=== PATIENT | female | born 1975 | race Caucasian/White ===

== ENCOUNTER 2022-01-20 00:07 | Day surgery (SDC) | payer OTHER, SELFPAY ==
[2022-01-12 15:11] VITALS: BMI 20.7
--- NOTE | 2022-01-12 15:30 | PC.NURSE ---
Report to the Outpatient Waiting Room, entrance under the green pavilion located off [facility], at time 1130 on date 01/20/22. OR Time: 1330. Time changes happen often and if your time is changed the preop area will call you the afternoon before. - You and your visitor will be asked to self-screen and do not enter if you have any COVID symptoms. - Only one visitor and NO children visitors are allowed at this time. - The patient visitor is requested to leave or wait in car when not with patient due to restrictions. - A mask is required within the hospital. Patients may have clear liquids (water, carbonated beverages, clear teas, apple juice) until 3 hours prior to surgery with a maximum of 20 ounces. - No food from midnight until time of surgery Take the following medications with a SIP of water the morning of surgery: NONE Medications to discontinue per physician: N/A Date to take last dose: N/A Please no make-up, nail kyrgyz, hairspray, perfume, deodorant, or body powder the day of surgery. No jewelry (including any body piercings) or valuables the day of surgery, leave them at home. Please take a shower or bath the night before, or the morning of, surgery with an antibacterial soap. Wear comfortable, loose fitting clothing. - Jewelry must be removed prior to entering the operating room. Rings and piercings that are not removed may be cut off. - The hospital will not accept responsibility for valuables. - Please leave all valuables, including medications, at home the day of surgery. If you are going home after surgery, a licensed flatbed driver must drive you home. - NO public transportation without another adult. - We recommend that an adult stay with you for 24 hours following discharge. - We also recommend that you do not drive, make important decision, drink alcoholic beverages, or take any drugs that were not prescribed by your health care provider for at least 24 hours after your discharge time. Follow any additional instructions given to you from your surgeon. If you or anyone in your household have experienced Covid symptoms in the past week, please notify your surgeon or the nurse liaison at the phone number below for possible testing. Telephone instructions given to PT Carol CISNEROS and asked if any additional questions and then verbalized understanding. Patient advised to call surgeon office or pre surgery nurse liaison [phone] if any additional questions.
[2022-01-20] VITALS (9 sets, daily range): BP systolic 112–148; BP diastolic 71–92; PULSE 63–101; RESP 12–18; TEMP 37.2; O2SAT 100
[2022-01-20] MEDS: LACTATED RINGERS 1,000 ML 30 ML IV CONT ×2 (11:40→16:58)
[2022-01-20 11:59] LABS: Urine Cotinine NEGATIVE
--- NOTE | 2022-01-20 13:51 | P.PNAN_ITS ---
Anes - Initial Pre Proc Eval Procedure: Operation Date: 01/20/22 13:30 Proposed Procedures p Bilateral Breast Implant Exchange with Mastopexy - Luis Hopkins MD Date/Time: 01/20/22 13:51 Surgeon: Luis Hopkins MD Pre Op Diagnosis: Hx of Breast Aug, Skin Laxity Patient Data Age: 46 Gender: F Height: 1.65 m Weight: 58.3 kg Last Vital Signs Temp 37.2 C 01/20/22 11:37 Pulse 63 01/20/22 11:37 Resp 16 01/20/22 11:37 BP 144/80 H 01/20/22 11:37 Pulse Ox 100 01/20/22 11:37 O2 Del Method Room Air 01/20/22 11:37 Allergies Allergy/AdvReac Type Severity Reaction Status Date / Time erythromycin base Allergy Unknown unknown Verified 01/20/22 11:22 ketorolac [From Toradol] AdvReac Other Verified 01/20/22 11:22 Home Medications Medication Instructions Recorded Confirmed Type clonazepam 0.5 mg tablet 0.25 mg PO QHS 11/18/21 01/20/22 History cetirizine 10 mg tablet 10 mg PO DAILY PRN Allergy Symptoms 01/12/22 01/20/22 History Laboratory Tests 01/20/22 11:33 Cotinine Negative Patient hx anesthesia problems: none Family hx anesthesia problems: none Results Review: All pre-operative results and documents have been reviewed as part of the pre- operative evaluation. [facility] Past Medical History Medical History Anxiety Asthma Surgical History Surgical History History of tubal ligation Family History Family History Father Diabetes mellitus Hypertension Mother Diabetes mellitus Hypertension Social History Social History Smoking status: Never smoker Alcohol intake: current Alcohol use details: 3/MONTH Substance use: never Substance use type: does not use Living arrangements: alone Spiritual care concerns: No Anes - Eval Final PreProcedure Day of Procedure 01/20/22 13:51 Patient weight: normal Heart: regular rate and rhythm Lungs: clear to auscultation Airway: Mallampati scale class 1 Neurological: alert and oriented Last oral intake: >/= 8 hours ASA classification: II Emergent: no Anesthetic plan: proceed Anesthesia type and monitoring: general LMA and standard monitoring Results Review: All pre-operative results and documents have been reviewed as part of the pre- operative evaluation. Informed Consent: The patient's anesthetic plan and its attendant risks and benefits were discussed with the patient/family/POA. Questions were solicited and answers provided to the satisfaction of the patient/family/POA.
--- NOTE | 2022-01-20 13:53 | WPDHPUPDATE1 ---
History and Physical Update Update Date/Time: 01/20/22 13:53 History and Physical has been reviewed, including an updated exam of the patient. There are NO changes in the patient's condition. Risks, benefits, and alternatives have been discussed and questions answered. Patient agrees to proceed with procedure.
[2022-01-20] MEDS: SCOPOLAMINE 1.5 MG PATCH TRANSDERM (14:15)
--- NOTE | 2022-01-20 14:15 | W.PM.PROC2 ---
Procedure Note - Detailed Date of Procedure 01/20/22 Pre-op Diagnosis Hx of Breast Aug, Skin Laxity Post-op Diagnosis Same Procedure Performed 1. Bilateral breast implant exchange. 2. Bilateral mastopexy Surgeon Luis Hpokins MD Anesthesia General Findings Inverted T Superior Pedicle mastopexy Bilateral lateral popcorn capsulorraphy with medial capsulotomy Bilateral implants with no worrisome features, no leak noted; however, the left implant appear partially filled. New implants: Right REF# [id number] filled to 430cc SN [id number] Left REF# [id number] filled to 430cc SN [id number] Description of Procedure She is here today for bilateral breast augmentation mastopexy. Previously and again today the risks, benefits, alternatives were discussed in extensive detail. I wanted her to be very realistic about the risks involved as well as expectations. She understands any pathology sent would be at her expense in addition to what she paid. We discussed aftercare and what to monitor for. Made sure answered all of her questions to her satisfaction today and consent was obtained. Marked in the preoperative holding area with their verification. The patient was taken to the operating room placed supine on the operating table. Anesthesia was provided by anesthesiology. A surgical time-out was taken. We cleansed the skin and 1% lidocaine and 0.25% Marcaine with epinephrine was used anesthetize as a field block. She was prepped and draped in a standard sterile fashion. Tegaderm nipple Gunter were placed. A 15 blade used to make an incision just superior to the inframammary fold leaving a cusp of de-epithelized tissue at the t junction. Dissection was continued until the chest wall as identified. The implant and capsule were identified and elevated just superficial to capsule. Much of the capsule (especially under areola) were left in place. I irrigated with 3 liters of saline on TUR tumbing. Lateral popcorn capsulorraphy and medial capsulotomy completed bilateral. I used a triple antibiotic and Betadine containing solution to irrigate the pocket. I washed my gloves with the triple antibiotic and Betadine solution. We washed the implant immediately upon opening it with this solution and only opened it when we needed it. I used implant funnel and no-touch technique. The implant was introduced into the pocket using the funnel. Having verified positioning of the implant this was closed using 2-0 Vicryl. I tailor tacked the breast into position. Placed her in a sitting position. Verified the nipple-areolar location based on preoperative planning as well as intraoperative observations and measurements in full agreement. She was placed supine. I de-epithelialized the pedicle. I then removed the inferior central portion of the breast need making sure the implant was well protected. I elevated medial and lateral tissue flaps as well for planned closure. I closed along the IMF with 2-0 Stratafix. Along the vertical with 2-0 PDS. I closed around the Bright with 3-0 strata fix. 3-0 Monocryl along the vertical. 3-0 Stratafix along the IMF. I finally closed everything with running subcuticular 4-0 Monocryl and tissue glue. Fluffs and surgical bra were placed. Estimated Blood Loss 30 Drains No Packing No Pathology Yes (Bilateral breast tissue with capsule) Complications No immediate complications Condition Stable Disposition PACU
[2022-01-20] MEDS: ceFAZolin 2 GM/D5W 50 ML 2 GM/50 ML BAG IVPB (14:34)
[2022-01-20] MEDS: TRANEXAMIC ACID 1,000MG/ISO100 1,000 MG/100 ML BAG 200 MG IVPB (14:36)
[2022-01-20] MEDS: BUPIVACAINE HCL 0.25% PF 30 ML VIAL INFILTRATE (14:44)
[2022-01-20] MEDS: LIDO 2%/EPINEPHRINE 1:100,000 20 ML VIAL 40 ML INFILTRATE (14:44)
[2022-01-20] MEDS: NACL 0.9% IRRIG POUR BOTTLE 900 ML, GENTAMICIN SULFATE INJ 160 MG, ceFAZolin 2 GM, POVI... IRRIGATION (14:50)
[2022-01-20] MEDS: HYDROmorphone HCL INJ (*CRX) 1 MG/ML SYR 0.5 MG IV PUSH ×2 (17:42→17:49)
[2022-01-20] MEDS: ONDANSETRON INJ 4 MG/2 ML VIAL IV PUSH (18:27)
== END 2022-01-20 18:55 | disposition home or self-care (01) ==
PROVIDERS: PCP Internal Medicine; Visit Provider Surgery Plastic and Reconstructive Surgery
PROC: (CPT 19370; principal; 2022-01-20 13:30)
DX: Z41.1 Encounter for cosmetic surgery (principal); L57.4 Cutis laxa senilis; F41.9 Anxiety disorder, unspecified; Z79.899 Other long term (current) drug therapy
CPT/HCPCS: 19370; 19316; 19325; 80307; 88304; A9270; J0171; J0690; J1100; J1170; J1580; J2250; J2405; J2704; J3010; J7120

== ENCOUNTER 2023-05-01 12:12 | Inpatient (IN) | payer OTHER, SELFPAY ==
--- NOTE | ~2023-05-01 | CT_ITS ---
EXAMINATION: CT abdomen pelvis w con DATE: 05/01/2023 13:57 INDICATION: periumbilical tenderness TECHNIQUE: Computed tomography (CT) of the abdomen and pelvis was performed with 100 mL Omnipaque-350 intravenous contrast. Automated exposure control and iterative reconstruction technique were employe d. The dose-length product was 265.42 mGy-cm. COMPARISON: None. FINDINGS: Lower thorax: Unremarkable Liver: Normal. Biliary/Gallbladder: Dilated gallbladder containing sludge/stones, with pericholecystic fluid. There is mild intrahepatic duct dilation. The common bile duct measures 11 mm at the jerrell hepatis. No obst ructing stone or mass detected. Pancreas: The pancreatic duct is dilated to 4 mm. No mass detected. Suggestion of edema within the pa ncreatic tail. Peripancreatic fluid surrounding the pancreatic body and tail. Spleen: Normal. Adrenals:No mass. Kidneys: No suspicious mass, obstructing stone, or hydronephrosis. Simple left midpole cyst. GI tract: No small or large bowel dilation. The appendix is not confidently visualized and may be soni gically absent or obscured by the relative paucity of abdominal fat. Mesentery/Peritoneum: No ascites, mass, or free air. Retroperitoneum: No mass. Pelvis: Pelvic organs are within normal limits. Bilateral tubal ligation. Soft Tissues: Soft tissues and body wall unremarkable. Bones: No acute osseous finding. IMPRESSION: Findings likely represent choledocholithiasis, although no obstructing stone or mass is detected. Con inspector and clipper MRCP. Secondary pancreatitis may be present, correlate with pancreatic labs. Reviewed, dictated and finalized at location K. OGY ADJUNCT INSTRUCTOR IMPRESSION: Findings likely represent choledocholithiasis, although no obstructing stone or mass is detected. Consider MRCP. Secondary pancreatitis may be present, correlate with pancreatic labs.
--- NOTE | ~2023-05-01 | US_ITS ---
EXAMINATION: US abdomen limited DATE: 05/01/2023 16:30 INDICATION: CHOLEDOCHOLITHIASIS TECHNIQUE: Multiple grayscale and Doppler ultrasound images of limited portions of the abdomen were o btained. COMPARISON: None available. FINDINGS: Mild dilation of the pancreatic duct. The liver is normal with normal echogenicity and echo texture. No surface nodularity. Normal hepatopetal flow in the main portal vein. Pericholecystic flui d. Borderline gallbladder wall thickening. Multiple gallstones. The common bile duct measures 5 mm. T here was no sonographic Chacon sign, but the patient is reportedly on pain medications. IMPRESSION: Cholelithiasis with borderline gallbladder wall thickening and small volume pericholecystic fluid. Th e sonographic Chacon sign was negative but this may be confounded by the concurrent use of pain medic ation. Pancreatic duct dilation. No obstructing biliary duct stone detected. Reviewed, dictated and finalized at location K. ICE DESK LEAD IMPRESSION: Cholelithiasis with borderline gallbladder wall thickening and small volume per icholecystic fluid. The sonographic Chacon sign was negative but this may be co nfounded by the concurrent use of pain medication. Pancreatic duct dilation. No obstructing biliary duct stone detected.
--- NOTE | ~2023-05-01 | MR_ITS ---
EXAMINATION: MR MRCP wo/w con/w 3D wo ind DATE: 05/02/2023 13:44 INDICATION: Gallstone pancreatitis with elevated liver enzymes TECHNIQUE: Magnetic resonance imaging (MRI) of the abdomen was performed without and with 12 mL Multi radha intravenous contrast. Sequences included coronal T2-weighted SS-FSE, coronal T2-weighted FS SS- FSE, coronal T2-weighted FS FIESTA, axial T2-weighted FS FIESTA, axial T2-weighted FIESTA, sagittal T 2-weighted SS-FSE, axial T1-weighted dual-echo FSPGR, axial T2-weighted SS-FSE, axial T1-weighted LAV A, axial T2-weighted STIR FSE. Thick-slab T2-weighted FRFSE-XL images were obtained for magnetic reso nance cholangiopancreatography (MRCP). Rotating maximum intensity projection 3-D reconstructions of t he volumetric data were created by the technologist. Postcontrast sequences included a time course of axial T1-weighted LAVA. COMPARISON: Ultrasound and CT dated 05/01/2023 FINDINGS: ABDOMEN MRI: Heart size is normal. No pericardial or pleural effusion. Bilateral breast implants. Liver, spleen, b ilateral adrenal glands and right kidney are normal. 6 mm T2 hyperintense nonenhancing left renal cys t. There are multiple gallstones within the gallbladder. There is trace amount of pericholecystic flu id and/or mild edematous gallbladder wall thickening suspicious for acute cholecystitis. There is str anding and likely acute peripancreatic fluid surrounding the tail of the pancreas consistent with pro vided history of acute interstitial pancreatitis. Pancreas otherwise normal with homogeneous parenchy mal enhancement with no evident necrosis. No loculated fluid collections to suggest abscess or pseudo cyst. No pathologically enlarged abdominal lymphadenopathy. Visualized portion of the bowels are unre markable with no obstruction. Normal bone marrow signal. ABDOMEN MRCP: Interval decrease in caliber of the common bile duct which at the time of prior CT measured approxima tely 11 mm in maximal diameter and currently measures 6 mm in maximal diameter. The common bile duct tapers distally with no evident obstructing stones or masses. There is no intrahepatic biliary ductal dilation. There is also been interval decrease in caliber of the main pancreatic duct which at the t raisa of the prior CT measured up to 4 mm in maximal diameter currently measuring up to 2.5 mm maximal diameter at the head and neck of the pancreas tapering to 1.5 mm at the tail. IMPRESSION: 1. Cholelithiasis with mild edematous gallbladder wall thickening and/or trace amount of pericholecys tic fluid consistent with acute cholecystitis. 2. Interval decrease in the biliary ductal dilation, previously 11 mm, currently 6 mm at the upper li mits of normal which suggests possibility of a since past obstructing stone with no evident current c holedocholithiasis. 3. Inflammatory changes at the tail of the pancreas suggestive of acute interstitial pancreatitis wit h resolution of prior dilation of the main pancreatic duct. Reviewed, dictated and finalized at location A. ANALYST IMPRESSION: 1. Cholelithiasis with mild edematous gallbladder wall thickening and/or trace amount of pericholecystic fluid consistent with acute cholecystitis. 2. Interval decrease in the biliary ductal dilation, previously 11 mm, currentl y 6 mm at the upper limits of normal which suggests possibility of a since past obstructing stone with no evident current choledocholithiasis. 3. Inflammatory changes at the tail of the pancreas suggestive of acute interst itial pancreatitis with resolution of prior dilation of the main pancreatic angela tMeghna
[2023-05-01 12:12] VITALS: BP 157/83; PULSE 80; RESP 22; TEMP 36.6; O2SAT 100
[2023-05-01 12:32] LABS: Basophils Absolute Auto 0.1 K/mm3 (0.0-0.1); Basophils Percent Auto 0.5 % (0.2-1.2); Eosinophils Absolute Auto 0.1 K/mm3 (0-0.3); Eosinophils Percent Auto 0.9 % (0-4.4); Hematocrit 43.5 % (37.0-47.0); Hemoglobin 14.4 g/dL (12.0-15.0); Immature Granulocyte Absolute 0.02 K/mm3 (0.00-0.031); Immature Granulocyte Percent A 0.2 % (0-0.5); Lymphocytes Absolute Auto 1.66 K/mm3 (0.9-3.2); Lymphocytes Percent Auto 17.5 % (18.3-44.2); Mean Corpuscular HGB Conc 33.1 g/dl (32-36); Mean Corpuscular Hemoglobin 29.5 pg (26-34); Mean Corpuscular Volume 89.1 fl (80-100); Mean Platelet Volume 9.2 fl (7.4-10.4); Monocytes Absolute Auto 0.6 K/mm3 (0.1-0.6); Monocytes Percent Auto 6.2 % (2.6-8.5); Neutrophils Absolute Auto 7.1 K/mm3 (1.3-6.7); Neutrophils Percent Auto 74.7 % (45.5-73.1); Platelet Count Result 297 k/mm3 (150-375); Red Blood Count 4.88 M/mm3 (4.2-5.4); Red Cell Distribution Width 12.3 % (11.5-14.5); White Blood Count 9.5 K/mm3 (4.5-10.0)
[2023-05-01 12:44] LABS: Alanine Aminotransferase 38 U/L (6-35); Albumin Level 4.8 g/dL (3.5-5.1); Alkaline Phosphatase 70 U/L (38-126); Anion Gap 8 mmol/L (8-16); Aspartate Amino Transferase 64 U/L (14-36); Bilirubin,Total 1.1 mg/dL (0.2-1.3); Blood Urea Nitrogen 10 mg/dL (7-17); Calcium 10.6 mg/dL (8.4-10.2); Carbon Dioxide 28 mmol/L (22-30); Chloride 105 mmol/L (98-107); Estimated CRCL calculation 72 ml/min; Estimated Glomerular Filt Rate > 60; Glucose 143 mg/dL (65-110); Potassium 3.5 mmol/L (3.4-5.0); Sodium 141 mmol/L (137-145)
[2023-05-01] MEDS: PANTOPRAZOLE SODIUM IV 40 MG VIAL IV PUSH (12:49)
[2023-05-01] MEDS: ONDANSETRON INJ 4 MG/2 ML VIAL IV PUSH (12:49)
[2023-05-01] MEDS: FAMOTIDINE 20 MG/2 ML VIAL IV PUSH (12:49)
[2023-05-01 12:55] LABS: Appearance Urine Clear (Clear); Bacteria Urine None Seen /hpf; Bilirubin Urine Negative (Negative); Blood Urine Negative (Negative); Color Urine Yellow (Yellow); Glucose Urine UA Negative (Negative); Ketones Urine Negative (Negative); Leukocyte Esterase Ur Trace LEU/UL (Negative); Nitrate Urine Negative (Negative); Non Pathogenic Casts 0-2; Protein Urine Negative (Negative); RBC Urine 0-2 /hpf (0-2); Specific Grav Ur 1.009 (1.001-1.035); Squamous Epithelial Cell Urine None seen /hpf (Few); Urobilinogen Urine 0.2 mg/dL (<2.0); WBC Urine 0-5 /hpf
[2023-05-01 12:59] LABS: Add Urine Microscopic? YES
[2023-05-01 13:49] LABS: Lipase > 40000 U/L (23-300)
[2023-05-01] MEDS: LACTATED RINGERS 1,000 ML 999 ML IV CONT (14:00)
--- NOTE | 2023-05-01 14:26 | ED.ABDPAIN ---
HPI - Abdominal Pain General Chief Complaint: Abdominal Pain Stated Complaint: abd pain Time Seen by Provider: 05/01/23 12:23 History of Present Illness HPI narrative: 47F p/w severe epigastric pain started today; has had similar episode months ago which resolved after 2 days and lots of antacids, which she tried today without improvement. Does drink lots of coffee, only drinks ETOH very occasionally, no history of gallstones. No f/c. Mild nausea. Normal BMs. Related Data Home Medications Medication Instructions Recorded Confirmed clonazepam 0.5 mg tablet 0.25 mg PO QHS 11/18/21 01/20/22 cetirizine 10 mg tablet 10 mg PO DAILY PRN Allergy Symptoms 01/12/22 01/20/22 Allergies Allergy/AdvReac Type Severity Reaction Status Date / Time erythromycin base Allergy Unknown unknown Verified 05/01/23 12:18 piperacillin [From Zosyn] Allergy Hives Verified 05/01/23 15:48 tazobactam [From Zosyn] Allergy Hives Verified 05/01/23 15:48 ketorolac [From Toradol] AdvReac Other Verified 05/01/23 12:18 Review of Systems Review of Systems: CONST: No fever. HEENT: No sore throat C/V: No chest pain RESP: No cough GI: Reports abdominal pain, nausea : No dysuria. M/S: No joint pain. SKIN: No rash. NEURO: [No headache or focal numbness or weakness] PSYCH: [No depression] [facility] Past Medical History Medical History Anxiety Asthma Surgical History Surgical History History of tubal ligation Family History Family History Father Diabetes mellitus Hypertension Mother Diabetes mellitus Hypertension Social History Social History Smoking status: Never smoker Alcohol intake: current Alcohol use details: 3/MONTH Substance use: never Substance use type: does not use Living arrangements: alone Spiritual care concerns: No Exam Narrative: EXAMINATION OF ORGAN SYSTEMS/BODY AREAS: Constitutional: Vital signs per nursing GENERAL: Appears to be in pain HEAD: Normal with no signs of head trauma. EYES: EOMI, conjunctiva normal ENT: Hearing grossly intact LUNGS: Nonlabored breathing. HEART: [Regular rate and rhythm] ABD: [Soft], [tender to palpation] epigastric, RUQ. EXT: Normal range of motion SKIN: [No rashes or lesions.] NEURO: [Alert and oriented x 3. No gross focal sensory or strength deficits.] PSYCH: Normal affect Course Vital Signs Vital signs: Vital Signs Temperature 97.9 F 05/01/23 12:12 Pulse Rate 80 05/01/23 12:12 Respiratory Rate 22 H 05/01/23 12:12 Blood Pressure 157/83 H 05/01/23 12:12 Pulse Oximetry 100 05/01/23 12:12 Oxygen Delivery Room Air 05/01/23 12:12 Temperature 98.3 F 05/01/23 15:58 Pulse Rate 76 05/01/23 15:58 Respiratory Rate 16 05/01/23 15:58 Blood Pressure 142/79 H 05/01/23 15:58 Pulse Oximetry 100 05/01/23 15:58 Oxygen Delivery Room Air 05/01/23 12:12 MDM - Abdominal Pain MDM Narrative Medical decision making narrative: Electronic medical record was reviewed. Patient presented to the ED with complaint of [abdominal pain and nausea]. Vitals [were within acceptable limits]. Physical exam revealed [tenderness to palpation in epigastric and right upper quadrant]. Based on the patient's history and physical exam, my differential includes but is not limited to [gastritis, gastroenteritis, cholecystitis, pancreatitis, appendicits.] [IV access was established by nursing staff. Patient was given zofran, Protonix]. she did decline morphine. CBC, BMP, lipase, LFTs, bilirubin and alk phos were obtained. Labs were pertinent for Extremely elevated lipase. [Decision was made to obtain a CT-abdomen to evaluate for acute abdominal process. this shows choledocholithiasis with pancreatitis.] discu
[2023-05-01] MEDS: PIPERACILLN/TAZ 3.375GM/NS50ML 3.375 GM/50 ML BAG IVPB (14:52)
[2023-05-01] MEDS: diphenhydrAMINE HCl INJ 50 MG/ML VIAL 25 MG IV PUSH (15:47)
--- NOTE | 2023-05-01 15:47 | PC.NURSE ---
pt called out, states she is itchy and notices hives. edp aware, ordered benadryl for allergic rxn
[2023-05-01 15:58] VITALS: BP 142/79; PULSE 76; RESP 16; TEMP 36.8; O2SAT 100
--- NOTE | 2023-05-01 17:20 | PM.IMHP ---
H&P: HPI History of Present Illness Date/Time: 05/01/23 17:20 Chief Complaint: Abdominal Pain Narrative: 47 y/o F presents here with left-sided abdominal pain and mild nausea with PMH of anxiety, asthma, and tubal ligation. Patient reports sudden onset of epigastric pain with radiation to her left upper quadrant that began today, 05/01, around 9:00 a.m. Describes the pain as constant and raw that was not relieved with movements/positions. It is radiated to her left rib cage. Associated nausea, mild and without vomiting and belching. Patient had coffee and a bagel this morning. Patient attempted to treat discomfort and nausea with Klonopin, Pepto-Bismol, Tums, Rolaids, and Pepcid without relief. Reports alcohol intake last night, 2 beverages - malibu and diet coke. States she drinks very infrequently, approximately 3 times per year. LBM this morning, normal color and consistency. No previous history of gallstones or DM. Had moderate dyslipidemia in her 20's but resolved with weight loss. No recent surgeries or illnesses. Has had a similar episode on 03/27. It is pain resolved with multiple doses of antacids and rest over 2 days. No history of abdominal bloating, food intolerance, increased gas, nausea or vomiting. No mid back or shoulder discomfort. Recently started a women's multivitamin once per day in the past week. ED workup revealed no leukocytosis, no anemia, glucose 143, calcium 10.6, AST 64, ALT 438, alk-phos 70, total bilirubin 1.1, and lipase >40,000. CT of abd/pelvis showed choledocholithiasis without obstructing stone and possible secondary pancreatitis. RUQ US showed cholelithiasis with borderline gallbladder wall thickening and small volume pericholecystic fluid, pancreatic duct dilation, no obstructing biliary duct stone detected. [facility] Past Medical History Medical History Anxiety Asthma Surgical History Surgical History History of tubal ligation Family History Family History Father Diabetes mellitus Hypertension Mother Diabetes mellitus Hypertension Social History Social History Smoking status: Never smoker Alcohol intake: current Drinks per week: 1 Alcohol use details: 3/MONTH Substance use: never Substance use type: does not use Do You Feel Safe in your Home?: Yes Lack of Transportation: No Lack of Food: Never True Current Housing: I Have Housing Concerned About Future Housing: No Difficulty Paying Gas/Electric Bills: No Difficulty Paying for Meds: No Currently Unemployed: No Education: Bachelor's Degree Difficulty w/ Childcare or Family Care: No Living arrangements: alone Spiritual care concerns: No Meds Home Medications and Allergies Home Medications Medication Instructions Recorded Confirmed Type clonazepam 0.5 mg tablet 0.25 mg PO QHS 11/18/21 01/20/22 History cetirizine 10 mg tablet 10 mg PO DAILY PRN Allergy Symptoms 01/12/22 01/20/22 History Allergies Allergy/AdvReac Type Severity Reaction Status Date / Time erythromycin base Allergy Unknown unknown Verified 05/01/23 12:18 piperacillin [From Zosyn] Allergy Hives Verified 05/01/23 15:48 tazobactam [From Zosyn] Allergy Hives Verified 05/01/23 15:48 ketorolac [From Toradol] AdvReac Other Verified 05/01/23 12:18 Vital Signs Vital Signs - 24 hr 05/01/23 12:12 05/01/23 15:58 Temperature 97.9 F 98.3 F Pulse Rate 80 76 Respiratory Rate 22 H 16 Blood Pressure 157/83 H 142/79 H Pulse Oximetry 100 100 Oxygen Delivery Room Air Exam Const: General: no acute distress and uncomfortable Other: female, , and non-toxic appearance. HENMT: Face/Nose/Sinus: Normal nares present Mouth: Yes moist mucous membranes Eyes: General: appearanc
[2023-05-01 17:59] VITALS: BMI 20.5
[2023-05-01] MEDS: LACTATED RINGERS 1,000 ML 100 ML IV CONT (18:13)
[2023-05-01] MEDS: levoFLOXacin 750 MG/D5W 150 ML 750 MG/150 ML BAG 100 MG IVPB (18:18)
[2023-05-01 18:22] LABS: Alanine Aminotransferase 40 U/L (6-35); Albumin Level 3.8 g/dL (3.5-5.1); Alkaline Phosphatase 62 U/L (38-126); Anion Gap 4 mmol/L (8-16); Aspartate Amino Transferase 50 U/L (14-36); Blood Urea Nitrogen 9 mg/dL (7-17); Calcium 9.5 mg/dL (8.4-10.2); Carbon Dioxide 29 mmol/L (22-30); Chloride 106 mmol/L (98-107); Estimated CRCL calculation 70 ml/min; Estimated Glomerular Filt Rate > 60; Glucose 93 mg/dL (65-110); Potassium 4.3 mmol/L (3.4-5.0); Sodium 139 mmol/L (137-145)
[2023-05-01] MEDS: metroNIDAZOLE 500 MG/ISO 100ML 500 MG/100 ML BAG 100 MG IVPB (20:37)
[2023-05-01 20:48] VITALS: BP 121/85; PULSE 63; RESP 18; TEMP 36.6; O2SAT 100
[2023-05-02 05:18] VITALS: BP 132/79; PULSE 66; RESP 16; TEMP 36.3; O2SAT 99
[2023-05-02] MEDS: ACETAMINOPHEN 325 MG TABLET 650 MG PO ×3 (05:19→17:20)
[2023-05-02] MEDS: metroNIDAZOLE 500 MG/ISO 100ML 500 MG/100 ML BAG 100 MG IVPB ×3 (05:19→20:06)
[2023-05-02 06:22] LABS: Basophils Absolute Auto 0.1 K/mm3 (0.0-0.1); Basophils Percent Auto 0.8 % (0.2-1.2); Eosinophils Absolute Auto 0.1 K/mm3 (0-0.3); Eosinophils Percent Auto 1.6 % (0-4.4); Hematocrit 40.7 % (37.0-47.0); Hemoglobin 13.3 g/dL (12.0-15.0); Immature Granulocyte Absolute 0.01 K/mm3 (0.00-0.031); Immature Granulocyte Percent A 0.2 % (0-0.5); Lymphocytes Absolute Auto 1.46 K/mm3 (0.9-3.2); Lymphocytes Percent Auto 23.5 % (18.3-44.2); Mean Corpuscular HGB Conc 32.7 g/dl (32-36); Mean Corpuscular Hemoglobin 29.9 pg (26-34); Mean Corpuscular Volume 91.5 fl (80-100); Mean Platelet Volume 9.5 fl (7.4-10.4); Monocytes Absolute Auto 0.4 K/mm3 (0.1-0.6); Monocytes Percent Auto 6.5 % (2.6-8.5); Neutrophils Absolute Auto 4.2 K/mm3 (1.3-6.7); Neutrophils Percent Auto 67.4 % (45.5-73.1); Platelet Count Result 244 k/mm3 (150-375); Red Blood Count 4.45 M/mm3 (4.2-5.4); Red Cell Distribution Width 12.4 % (11.5-14.5); White Blood Count 6.2 K/mm3 (4.5-10.0)
[2023-05-02 06:39] LABS: Alanine Aminotransferase 32 U/L (6-35); Alkaline Phosphatase 63 U/L (38-126); Anion Gap 5 mmol/L (8-16); Aspartate Amino Transferase 28 U/L (14-36); Bilirubin,Total 0.9 mg/dL (0.2-1.3); Blood Urea Nitrogen 10 mg/dL (7-17); Calcium 9.1 mg/dL (8.4-10.2); Carbon Dioxide 29 mmol/L (22-30); Chloride 105 mmol/L (98-107); Cholesterol 167 mg/dL (0-200); Estimated CRCL calculation 63 ml/min; Estimated Glomerular Filt Rate > 60; Glucose 97 mg/dL (65-110); HDL Direct 65 mg/dL; Potassium 3.7 mmol/L (3.4-5.0); Sodium 139 mmol/L (137-145); Triglycerides 67 mg/dL (<150)
[2023-05-02 06:40] LABS: Hemoglobin A1C 5.5 % (<5.7)
[2023-05-02 06:48] LABS: LDL Cholesterol Direct 79 mg/dL
[2023-05-02 07:19] LABS: Lipase 6368 U/L (23-300)
[2023-05-02] MEDS: PANTOPRAZOLE SODIUM IV 40 MG VIAL IV PUSH (08:34)
[2023-05-02] MEDS: ENOXAPARIN 40 MG/0.4 ML SYRINGE SUB-Q (08:35)
[2023-05-02 09:46] VITALS: O2SAT 97
--- NOTE | 2023-05-02 11:56 | PM.IMPN ---
Progress Note: A&P Assessment and Plan (1) Choledocholithiasis: Code(s): K80.50 - Calculus of bile duct without cholangitis or cholecystitis without obstruction Status: Acute Assessment and Plan: CT abd/pelvis: Findings likely represent choledocholithiasis, although no obstructing stone or mass is detected. Consider MRCP. Secondary pancreatitis may be present, correlate with pancreatic labs. RUQ US: Cholelithiasis with borderline gallbladder wall thickening and small volume pericholecystic fluid. Pancreatic duct dilation. No obstructing biliary duct stone detected. 05/01 AST 64, ALT 38, alk-phos 70, lipase >40,000. 05/02 AST 28, ALT 32, alk-phos 63, lipase 6368. Consult GI and General surgery General surgery recommended starting Zosyn but pt had reaction and this was changed to Levaquin Clear liquids. P.r.n. pain medication. Trend daily labs. (2) Acute pancreatitis: Qualifiers: Acute pancreatitis complication: unspecified Pancreatitis type: unspecified pancreatitis type Qualified Code(s): K85.90 - Acute pancreatitis without necrosis or infection, unspecified Code(s): K85.90 - Acute pancreatitis without necrosis or infection, unspecified Status: Acute Assessment and Plan: 05/01 AST 64, ALT 38, alk-phos 70, lipase >40,000. 05/02 AST 28, ALT 32, alk-phos 63, lipase 6368. Clear liquid diet. consulting modeling manager for dietary recommendations/education for pancreatitis and cholecystitis patients. P.r.n. pain medication. IV fluids. Subjective Date/time seen: 05/02/23 11:56 Interval history: Patient's pain is completely resolved. Waiting on GI and General surgery to see the patient And appreciate their recommendations. Her elevated LFTs have resolved. Lipase is improving. Continue clear liquid diet. She denies any nausea vomiting, body aches and chills. States that she has had abdominal pain like this in the past but this was by far the worst experience she had had Exam Narrative: GENERAL: Comfortable, no acute distress HENMT: moist mucous membranes EYES: EOM intact b/l NECK: no lymphadenopathy RESPIRATORY: clear to auscultation CARDIO: RRR GI: soft, nontender, bowel sounds present SKIN: no rashes EXTREMITIES: no edema, redness or tenderness Objective Data Vital Signs Vital Signs: Vital Signs - 24 hr 05/01/23 12:12 05/01/23 15:58 05/01/23 18:23 Temperature 97.9 F 98.3 F Pulse Rate 80 76 Respiratory Rate 22 H 16 Blood Pressure 157/83 H 142/79 H Pulse Oximetry 100 100 Oxygen Delivery Room Air Room Air 05/01/23 20:48 05/01/23 20:00 05/02/23 05:18 Temperature 97.8 F 97.4 F L Pulse Rate 63 66 Respiratory Rate 18 16 Blood Pressure 121/85 132/79 Pulse Oximetry 100 99 Oxygen Delivery Room Air 05/02/23 09:46 05/02/23 08:35 Temperature Pulse Rate Respiratory Rate Blood Pressure Pulse Oximetry 97 Oxygen Delivery Room Air Intake/Output Intake/Output: Intake & Output 04/29/23 04/30/23 05/01/23 05/02/23 23:59 23:59 23:59 23:59 Intake Total 1300 1580 Balance 1300 1580 Meds/Results Medications: Active Medications Generic Name Dose Route Start Last Admin Trade Name Freq PRN Reason Stop Dose Admin Acetaminophen 650 mg 05/01/23 17:11 05/02/23 11:27 Acetaminophen 325 Mg Tablet PO 650 mg Q4H PRN Administration Mild Pain (1-3) or Fever Hydrocodone Bitart/Acetaminophen 1 tab 05/01/23 17:11 Hydrocodone/Acetaminophen (*Crx) 5-325 Mg Tablet PO Q4H PRN Moderate Pain (4-6) Diphenhydramine HCl 25 mg 05/01/23 17:31 Diphenhydramine Hcl Inj 50 Mg/Ml Vial IV PUSH Q4H PRN Itching Levofloxacin/Dextrose 750 mg in 150 mls @ 100 mls/hr 05/01/23 18:00 05/01/23 19:48 Levaquin 750 Mg/D5w 150 Ml IVPB Infused Q24H LARA Infusion Metronidazole 500 mg in 100 mls @ 100 mls/hr 05/01/23 21:00 05/02/23 06:15 Flagyl 500 Mg/Iso Soln 100 Ml IVPB Infuse
[2023-05-02 14:00] VITALS: BP 119/78; PULSE 73; RESP 16; TEMP 36.8; O2SAT 99
--- NOTE | 2023-05-02 14:26 | WPDGICN ---
Assessment and Plan Assessment and plan (1) Gallstone pancreatitis: Code(s): K85.10 - Biliary acute pancreatitis without necrosis or infection Status: Acute Assessment and Plan: awaiting on MRCP, if stone in bile duct then will need ERCP surgery to evaluate patient because she has cholelithiasis doing better now (2) Elevated transaminase level: Code(s): R74.01 - Elevation of levels of liver transaminase levels Status: Acute Assessment and Plan: normal bili, transaminases improved this is from pancreatitis no alcohol use (3) Epigastric pain: Code(s): R10.13 - Epigastric pain Status: Acute Assessment and Plan: better GI Consult Note Consult date/time: 05/02/23 14:26 Reason for consult: GS pancreatitis HPI: Hayley Birmingham is a 47 year old female here with new onset of severe epigastric pain and nausea (she had similar episode Mar 27 but went away), she came to ER and diagnosed with GS pancreatitis- ultrasound showed Cholelithiasis with borderline gallbladder wall thickening and small volume pericholecystic fluid. Normal bili, elevated lipase and mild elevated transaminases. No alcohol abuse, no previous pancreatitis. Denies gastric surgeries. She has been getting colonoscopies every year at [facility] because family history. She is comfortable now, pain is better. Just completed MRCP. Review of Systems Constitutional: Constitutional: Denies headache(s) Eyes: Eyes: Denies blurry vision ENT: Reports Normal hearing present, Denies headache(s) and Denies neck pain Cardiovascular: Cardiovascular: Denies chest pain and Denies dyspnea Respiratory: Respiratory: Denies dyspnea Gastrointestinal: Gastrointestinal: Reports abdominal pain and Reports nausea Genitourinary: Genitourinary: Denies dysuria Musculoskeletal: Musculoskeletal: Denies neck pain Integumentary/Breasts: Skin/Breast: Denies dry skin Neurologic: Reports Normal hearing present, Denies headache(s) and Denies weakness Psychiatric: Psychiatric: Denies anxiety Endocrine: Endocrine: Denies change in body appearance Hematologic/Lymphatic: Hematologic/Lymphatic: Denies easy bleeding Allergic/Immunologic: Allergic/Immunologic: Denies urticaria PMFSH Past Medical History Medical History (Updated 05/02/23 @ 14:29 by Redd Lua MD) Anxiety Asthma Elevated transaminase level Epigastric pain Gallstone pancreatitis Surgical History Surgical History History of tubal ligation Family History Family History Father Diabetes mellitus Hypertension Mother Diabetes mellitus Hypertension Social History Social History Smoking status: Never smoker Alcohol intake: current Drinks per week: 1 Alcohol use details: 3/MONTH Substance use: never Substance use type: does not use Do You Feel Safe in your Home?: Yes Lack of Transportation: No Lack of Food: Never True Current Housing: I Have Housing Concerned About Future Housing: No Difficulty Paying Gas/Electric Bills: No Difficulty Paying for Meds: No Currently Unemployed: No Education: Bachelor's Degree Difficulty w/ Childcare or Family Care: No Living arrangements: alone Spiritual care concerns: No Meds Home Medications and Allergies Home Medications Medication Instructions Recorded Confirmed Type clonazepam 0.5 mg tablet 0.25 mg PO QHS PRN Anxiety 11/18/21 05/01/23 History cetirizine 10 mg tablet 10 mg PO DAILY PRN Allergy Symptoms 01/12/22 05/01/23 History Allergies Allergy/AdvReac Type Severity Reaction Status Date / Time erythromycin base Allergy Unknown unknown Verified 05/01/23 12:18 piperacillin [From Zosyn] Allergy Hives Verified 05/01/23 15:48 tazobactam [From Zosyn] Allergy Hives Verifie
--- NOTE | 2023-05-02 16:57 | WPDCN ---
Assessment and Plan Assessment and plan (1) Gallstone pancreatitis: Code(s): K85.10 - Biliary acute pancreatitis without necrosis or infection Status: Acute Assessment and Plan: Patient's epigastric abdominal pain has markedly improved. No nausea or now. White blood cell count is normal. Lipase is decreased from 40,000 down to 6000. MRCP has been done and reading is pending. More than likely she has passed a common bile duct stone. (2) Cholelithiasis: Code(s): K80.20 - Calculus of gallbladder without cholecystitis without obstruction Status: Acute Assessment and Plan: Patient has residual cholelithiasis and sludge in the gallbladder. Gallbladder does not appear to be acutely inflamed. Will repeat all of her labs tomorrow and for gallstone pancreatitis continues to improve and MRCP shows no evidence of a retained common bile duct stone then we may consider trying to add her onto the schedule for a laparoscopic cholecystectomy possible emergent open cholecystectomy during this admission. Risks, benefits, indications, and expected outcomes were discussed with the patient and/or family members. Specific risks to include bleeding and possible need for blood transfusion, infection, bile leak, injury to other organs, common bile duct injury, and conversion to open cholecystectomy has been discussed. I have answered all their questions and they agreed to proceed with surgery as outlined above if it appears that we can safely proceed with cholecystectomy tomorrow. HPI Data of Consult Date/Time: 05/02/23 16:57 Requesting Physician: Sean Cazares MD Primary Care Provider: Bella Garcia, Consult Narrative Reason for consult: Acute gallstone pancreatitis, cholelithiasis Narrative: Hayley Birmingham is a 47 year old female who was admitted to the hospital with severe epigastric abdominal pain and a lipase of over 40,000. cholelithiasis was noted on CT scan and abdominal ultrasound but no evidence of acute cholecystitis. Common bile duct was dilated to 11mm on CT scan on ultrasound but no definite common bile duct stone was seen on imaging. She was admitted to the hospital for gallstone pancreatitis and started on IV antibiotics. Her pain now is much improved over when she was admitted last evening. She is able tolerate some clear liquids. Her lipase has decreased down to 6000. Liver enzymes are normal as well. MRCP was done earlier today and the reading is still pending. She was seen by GI and plan is to perform an ERCP if there appears to be a retained common bile duct stone on MRCP. Her only other prior abdominal surgery was a tubal ligation many years ago. She most recently had replacements of her bilateral breast implants by Dr. Paul in January 2023. She denies any alcohol use. She is employed as a mental health nurse. Review of Systems Review of Systems: The remainder of the review of systems to include constitutional, HEENT, cardiovascular, respiratory, GI, , integumentary, musculoskeletal, endocrine, immunologic, hematologic, psychiatric, and neurologic are all negative except for which is mentioned above in the HPI. [facility] Past Medical History Medical History Anxiety Asthma Elevated transaminase level Epigastric pain Gallstone pancreatitis Surgical History Surgical History History of tubal ligation Family History Family History Father Diabetes mellitus Hypertension Mother Diabetes mellitus Hypertension Social History Social History Smoking status: Never smoker Alcohol intake: current Drinks per week: 1 Alcohol use details: 3/MONTH Substance use: never Substance use type: does not use Do You Feel Safe in your Home?:
[2023-05-02] MEDS: levoFLOXacin 750 MG/D5W 150 ML 750 MG/150 ML BAG 100 MG IVPB (17:19)
[2023-05-02] MEDS: DIPHENHYDRAMINE 1%/ZINC 0.1% CREAM 30 GM TUBE 1 APPLIC TOPICAL (17:20)
[2023-05-02 20:35] VITALS: BP 135/82; PULSE 79; RESP 17; TEMP 36.8; O2SAT 98
[2023-05-03] VITALS (13 sets, daily range): BP systolic 101–152; BP diastolic 48–89; PULSE 68–109; RESP 14–20; TEMP 36.1–37.6; O2SAT 97–100
[2023-05-03] MEDS: metroNIDAZOLE 500 MG/ISO 100ML 500 MG/100 ML BAG 100 MG IVPB ×2 (04:37→13:16)
[2023-05-03 06:01] LABS: Hematocrit 38.1 % (37.0-47.0); Hemoglobin 12.6 g/dL (12.0-15.0); Mean Corpuscular HGB Conc 33.1 g/dl (32-36); Mean Corpuscular Hemoglobin 29.6 pg (26-34); Mean Corpuscular Volume 89.4 fl (80-100); Mean Platelet Volume 9.1 fl (7.4-10.4); Platelet Count Result 226 k/mm3 (150-375); Red Blood Count 4.26 M/mm3 (4.2-5.4); Red Cell Distribution Width 12.1 % (11.5-14.5); White Blood Count 3.9 K/mm3 (4.5-10.0)
[2023-05-03 06:20] LABS: Alanine Aminotransferase 25 U/L (6-35); Albumin Level 3.9 g/dL (3.5-5.1); Alkaline Phosphatase 58 U/L (38-126); Anion Gap 8 mmol/L (8-16); Aspartate Amino Transferase 21 U/L (14-36); Bilirubin,Total 0.7 mg/dL (0.2-1.3); Blood Urea Nitrogen 4 mg/dL (7-17); Calcium 9.1 mg/dL (8.4-10.2); Carbon Dioxide 26 mmol/L (22-30); Chloride 108 mmol/L (98-107); Estimated CRCL calculation 80 ml/min; Estimated Glomerular Filt Rate > 60; Glucose 98 mg/dL (65-110); Lipase 435 U/L (23-300); Potassium 3.8 mmol/L (3.4-5.0); Sodium 142 mmol/L (137-145)
[2023-05-03] MEDS: PANTOPRAZOLE SODIUM IV 40 MG VIAL IV PUSH (08:36)
--- NOTE | 2023-05-03 11:03 | WPDPN ---
Progress Note: A&P Assessment and Plan (1) Cholelithiasis: Code(s): K80.20 - Calculus of gallbladder without cholecystitis without obstruction Status: Acute Assessment and Plan: Patient has residual cholelithiasis. MRCP shows some trace fluid around the gallbladder which likely reactive to the acute pancreatitis. Recommend proceeding with a laparoscopic cholecystectomy possible conversion open cholecystectomy today. Patient is agreeable and will proceed with surgery as outlined in yesterday's note and today. (2) Gallstone pancreatitis: Code(s): K85.10 - Biliary acute pancreatitis without necrosis or infection Status: Acute Assessment and Plan: Pancreatitis improved. Pain is improving. Lipase is down less than 500 today. We will proceed with laparoscopic cholecystectomy today. Subjective Date/time seen: 05/03/23 11:03 Interval history: Has very anxious about having surgery today. She continues to be NPO. Lipase is less than 500 this morning. Her pain is better. White blood cell count is 3200. No fever. Liver enzymes are normal. MRCP shows decrease in the caliber of the common bile duct to 6mm now. No retained common bile duct stone is seen. There was a small amount of fluid around the gallbladder which likely reactive to her acute pancreatitis. Gallstones are noted. No severe acute cholecystitis seen. Exam GI: Other: Abdomen is soft and nondistended. Decreasing and minimal epigastric abdominal pain to palpation. No right upper quadrant tenderness to palpation and no palpable gallbladder. Objective Data Vital Signs Vital Signs: Vital Signs - 24 hr 05/02/23 14:00 05/02/23 20:35 05/02/23 20:00 Temperature 36.8 C 36.8 C Pulse Rate 73 79 Respiratory Rate 16 17 Blood Pressure 119/78 135/82 Pulse Oximetry 99 98 Oxygen Delivery Room Air 05/03/23 05:36 05/03/23 08:50 Temperature 36.8 C Pulse Rate 75 Respiratory Rate 15 Blood Pressure 127/72 Pulse Oximetry 99 Oxygen Delivery Room Air Intake/Output Intake/Output: Intake & Output 04/30/23 05/01/23 05/02/23 05/03/23 23:59 23:59 23:59 23:59 Intake Total 1300 2650 100 Output Total 0 Balance 1300 2650 100 Meds/Results Medications: Active Medications Generic Name Dose Route Start Last Admin Trade Name Freq PRN Reason Stop Dose Admin Acetaminophen 650 mg 05/01/23 17:11 05/02/23 17:20 Acetaminophen 325 Mg Tablet PO 650 mg Q4H PRN Administration Mild Pain (1-3) or Fever Hydrocodone Bitart/Acetaminophen 1 tab 05/01/23 17:11 Hydrocodone/Acetaminophen (*Crx) 5-325 Mg Tablet PO Q4H PRN Moderate Pain (4-6) Diphenhydramine HCl 25 mg 05/01/23 17:31 Diphenhydramine Hcl Inj 50 Mg/Ml Vial IV PUSH Q4H PRN Itching Levofloxacin/Dextrose 750 mg in 150 mls @ 100 mls/hr 05/01/23 18:00 05/02/23 18:49 Levaquin 750 Mg/D5w 150 Ml IVPB Infused Q24H LARA Infusion Metronidazole 500 mg in 100 mls @ 100 mls/hr 05/01/23 21:00 05/03/23 05:37 Flagyl 500 Mg/Iso Soln 100 Ml IVPB Infused Q8H LARA Infusion Dextrose/Lactated Ringer's 1,000 mls @ 125 mls/hr 05/03/23 11:05 Dextrose 5%/Lactated Ringers IV CONT .Q8H LARA Morphine Sulfate 2 mg 05/01/23 17:11 Morphine Sulfate (*Crx) 2 Mg/Ml Inj IV PUSH Q4H PRN Pain Rated 7-10 Neomycin/Polymyxin/Bacitracin 1 applic 05/03/23 09:12 Neomycin/Polymyxin/Bacitracin Ointment 15 Gm Tube TOPICAL QAM LARA Ondansetron HCl 4 mg 05/01/23 17:11 Ondansetron Inj 4 Mg/2 Ml Vial IV PUSH Q6H PRN Nausea And Vomiting Pantoprazole Sodium 40 mg 05/02/23 09:00 05/03/23 08:36 Pantoprazole Sodium Iv 40 Mg Vial IV PUSH 40 mg QAM LARA Administration Zinc Acetate/Diphenhydramine 1 applic 05/02/23 15:53 05/02/23 17:20 Diphenhydramine 1%/Zinc 0.1% Cream 30 Gm Tube TOPICAL 1 applic Q6H PRN Administration Itching Radiology Results: [facility]
[2023-05-03] MEDS: DEXTROSE 5%/LACTATED RINGERS 1,000 ML 125 ML IV CONT (11:20)
[2023-05-03] MEDS: ACETAMINOPHEN 325 MG TABLET 650 MG PO (11:21)
[2023-05-03] MEDS: NEOMYCIN/POLYMYXIN/BACITRACIN OINTMENT 15 GM TUBE 1 APPLIC TOPICAL (11:21)
--- NOTE | 2023-05-03 13:24 | PM.IMPN ---
Progress Note: A&P Assessment and Plan (1) Choledocholithiasis: Code(s): K80.50 - Calculus of bile duct without cholangitis or cholecystitis without obstruction Status: Acute Assessment and Plan: CT abd/pelvis: Findings likely represent choledocholithiasis, although no obstructing stone or mass is detected. Consider MRCP. Secondary pancreatitis may be present, correlate with pancreatic labs. RUQ US: Cholelithiasis with borderline gallbladder wall thickening and small volume pericholecystic fluid. Pancreatic duct dilation. No obstructing biliary duct stone detected. 05/01 AST 64, ALT 38, alk-phos 70, lipase >40,000. 05/02 AST 28, ALT 32, alk-phos 63, lipase 6368. 05/03 lipase <500 Consult GI and General surgery General surgery recommended starting Zosyn but pt had reaction and this was changed to Levaquin Plan for laparoscopic cholecystectomy today. P.r.n. pain medication. Trend daily labs. (2) Acute pancreatitis: Qualifiers: Acute pancreatitis complication: unspecified Pancreatitis type: unspecified pancreatitis type Qualified Code(s): K85.90 - Acute pancreatitis without necrosis or infection, unspecified Code(s): K85.90 - Acute pancreatitis without necrosis or infection, unspecified Status: Acute Assessment and Plan: 05/01 AST 64, ALT 38, alk-phos 70, lipase >40,000. 05/02 AST 28, ALT 32, alk-phos 63, lipase 6368. 05/03 lipase <500. P.r.n. pain medication. IV fluids. Subjective Date/time seen: 05/03/23 13:24 Interval history: Patient doing well and denies any pain at this time. Plan for surgery today. Hopeful that she can discharge tomorrow. Exam Narrative: GENERAL: Comfortable, no acute distress HENMT: moist mucous membranes EYES: EOM intact b/l NECK: no lymphadenopathy RESPIRATORY: clear to auscultation CARDIO: RRR GI: soft, nontender, bowel sounds present SKIN: no rashes EXTREMITIES: no edema, redness or tenderness Objective Data Vital Signs Vital Signs: Vital Signs - 24 hr 05/02/23 14:00 05/02/23 20:35 05/02/23 20:00 Temperature 98.3 F 98.2 F Pulse Rate 73 79 Respiratory Rate 16 17 Blood Pressure 119/78 135/82 Pulse Oximetry 99 98 Oxygen Delivery Room Air 05/03/23 05:36 05/03/23 08:50 Temperature 98.2 F Pulse Rate 75 Respiratory Rate 15 Blood Pressure 127/72 Pulse Oximetry 99 Oxygen Delivery Room Air Intake/Output Intake/Output: Intake & Output 04/30/23 05/01/23 05/02/23 05/03/23 23:59 23:59 23:59 23:59 Intake Total 1300 2650 100 Output Total 0 Balance 1300 2650 100 Meds/Results Medications: Active Medications Generic Name Dose Route Start Last Admin Trade Name Freq PRN Reason Stop Dose Admin Acetaminophen 650 mg 05/01/23 17:11 05/03/23 11:21 Acetaminophen 325 Mg Tablet PO 650 mg Q4H PRN Administration Mild Pain (1-3) or Fever Hydrocodone Bitart/Acetaminophen 1 tab 05/01/23 17:11 Hydrocodone/Acetaminophen (*Crx) 5-325 Mg Tablet PO Q4H PRN Moderate Pain (4-6) Diphenhydramine HCl 25 mg 05/01/23 17:31 Diphenhydramine Hcl Inj 50 Mg/Ml Vial IV PUSH Q4H PRN Itching Levofloxacin/Dextrose 750 mg in 150 mls @ 100 mls/hr 05/01/23 18:00 05/02/23 18:49 Levaquin 750 Mg/D5w 150 Ml IVPB Infused Q24H LARA Infusion Metronidazole 500 mg in 100 mls @ 100 mls/hr 05/01/23 21:00 05/03/23 05:37 Flagyl 500 Mg/Iso Soln 100 Ml IVPB Infused Q8H LARA Infusion Dextrose/Lactated Ringer's 1,000 mls @ 125 mls/hr 05/03/23 11:05 05/03/23 11:20 Dextrose 5%/Lactated Ringers IV CONT 125 mls/hr .Q8H LARA Administration Morphine Sulfate 2 mg 05/01/23 17:11 Morphine Sulfate (*Crx) 2 Mg/Ml Inj IV PUSH Q4H PRN Pain Rated 7-10 Neomycin/Polymyxin/Bacitracin 1 applic 05/03/23 09:12 05/03/23 11:21 Neomycin/Polymyxin/Bacitracin Ointment 15 Gm Tube TOPICAL 1 applic QAM LARA Administration Ondansetron HCl
--- NOTE | 2023-05-03 13:31 | WPDGIPROGNO ---
Progress Note: A&P Assessment and Plan (1) Gallstone pancreatitis: Code(s): K85.10 - Biliary acute pancreatitis without necrosis or infection Status: Acute Assessment and Plan: mrcp reviewed, noted cholelithiasis, no bile duct stone and duct reduced in size c/w passed stone, no need of ercp plan is lap иван (2) Elevated transaminase level: Code(s): R74.01 - Elevation of levels of liver transaminase levels Status: Acute Assessment and Plan: normalized (3) Epigastric pain: Code(s): R10.13 - Epigastric pain Status: Acute (4) Acute pancreatitis: Qualifiers: Acute pancreatitis complication: unspecified Pancreatitis type: unspecified pancreatitis type Qualified Code(s): K85.90 - Acute pancreatitis without necrosis or infection, unspecified Code(s): K85.90 - Acute pancreatitis without necrosis or infection, unspecified Status: Acute Assessment and Plan: improved from gs pancreatitis Subjective Date/time seen: 05/03/23 13:31 Interval history: pain is almost gone and GI symptom improved she is just very scared and anxious about surgery Review of Systems Review of Systems: All systems reviewed & are unremarkable except as noted in HPI and below Exam Const: General: comfortable and no acute distress HENMT: Face/Nose/Sinus: Normal nares present Eyes: General: appearance normal, both eyes and all related structures Neck: Neck: supple Resp: Auscultation: clear to auscultation bilaterally Cardio: Rate: regular rate Rhythm: regular rhythm GI: Inspection: non-distended GI Palp: Yes Soft to palpation, Yes Tenderness to palpation present (GI) (ttp almost gone, much better) and No Guarding due to palpation present (GI) Auscultation: normal bowel sounds Skin: General skin exam: normal color Neuro: General: gait normal Speech: normal speech Extrem: General: normal to inspection Psych: Mental Status: mental status grossly normal Objective Data Vital Signs Vital Signs: Vital Signs - 24 hr 05/02/23 14:00 05/02/23 20:35 05/02/23 20:00 Temperature 98.3 F 98.2 F Pulse Rate 73 79 Respiratory Rate 16 17 Blood Pressure 119/78 135/82 Pulse Oximetry 99 98 Oxygen Delivery Room Air 05/03/23 05:36 05/03/23 08:50 Temperature 98.2 F Pulse Rate 75 Respiratory Rate 15 Blood Pressure 127/72 Pulse Oximetry 99 Oxygen Delivery Room Air Intake/Output Intake/Output: Intake & Output 04/30/23 05/01/23 05/02/23 05/03/23 23:59 23:59 23:59 23:59 Intake Total 1300 2650 100 Output Total 0 Balance 1300 2650 100 Meds/Results Medications: Active Medications Generic Name Dose Route Start Last Admin Trade Name Freq PRN Reason Stop Dose Admin Acetaminophen 650 mg 05/01/23 17:11 05/03/23 11:21 Acetaminophen 325 Mg Tablet PO 650 mg Q4H PRN Administration Mild Pain (1-3) or Fever Hydrocodone Bitart/Acetaminophen 1 tab 05/01/23 17:11 Hydrocodone/Acetaminophen (*Crx) 5-325 Mg Tablet PO Q4H PRN Moderate Pain (4-6) Diphenhydramine HCl 25 mg 05/01/23 17:31 Diphenhydramine Hcl Inj 50 Mg/Ml Vial IV PUSH Q4H PRN Itching Levofloxacin/Dextrose 750 mg in 150 mls @ 100 mls/hr 05/01/23 18:00 05/02/23 18:49 Levaquin 750 Mg/D5w 150 Ml IVPB Infused Q24H LARA Infusion Metronidazole 500 mg in 100 mls @ 100 mls/hr 05/01/23 21:00 05/03/23 13:16 Flagyl 500 Mg/Iso Soln 100 Ml IVPB 100 mls/hr Q8H LARA Administration Dextrose/Lactated Ringer's 1,000 mls @ 125 mls/hr 05/03/23 11:05 05/03/23 11:20 Dextrose 5%/Lactated Ringers IV CONT 125 mls/hr .Q8H LARA Administration Morphine Sulfate 2 mg 05/01/23 17:11 Morphine Sulfate (*Crx) 2 Mg/Ml Inj IV PUSH Q4H PRN Pain Rated 7-10 Neomycin/Polymyxin/Bacitracin 1 applic 05/03/23 09:12 05/03/23 11:21 Neomycin/Polymyxin/Bacitracin Ointment 15 Gm Tube TOPICAL 1 applic QAM [facility] Administrat
[2023-05-03] MEDS: LACTATED RINGERS 1,000 ML 30 ML IV CONT ×2 (15:15→16:28)
--- NOTE | 2023-05-03 15:18 | WPDHPUPDATE1 ---
History and Physical Update Update Date/Time: 05/03/23 15:18 History and Physical has been reviewed, including an updated exam of the patient. There are NO changes in the patient's condition. Risks, benefits, and alternatives have been discussed and questions answered. Patient agrees to proceed with procedure.
--- NOTE | 2023-05-03 15:20 | WPDANESEPPF ---
Anes - Initial Pre Proc Eval Procedure: Operation Date: 05/03/23 14:00 Proposed Procedures p Laparoscopic Cholecystectomy,Possible Open - Ric Tubbs MD Date/Time: 05/03/23 15:20 Surgeon: Sean Cazares MD Pre Op Diagnosis: Choledocholithiasis Patient Data Age: 47 Gender: F Height: 1.7 m Weight: 59.6 kg Last Vital Signs Temp 36.6 C 05/03/23 14:00 Pulse 102 H 05/03/23 14:00 Resp 20 05/03/23 14:00 BP 136/81 05/03/23 14:00 Pulse Ox 100 05/03/23 14:00 O2 Del Method Room Air 05/03/23 08:50 Allergies Allergy/AdvReac Type Severity Reaction Status Date / Time erythromycin base Allergy Unknown unknown Verified 05/01/23 12:18 piperacillin [From Zosyn] Allergy Hives Verified 05/01/23 15:48 tazobactam [From Zosyn] Allergy Hives Verified 05/01/23 15:48 Home Medications Medication Instructions Recorded Confirmed Type clonazepam 0.5 mg tablet 0.25 mg PO QHS PRN Anxiety 11/18/21 05/01/23 History cetirizine 10 mg tablet 10 mg PO DAILY PRN Allergy Symptoms 01/12/22 05/01/23 History Laboratory Tests 05/03/23 05:45 WBC 3.9 L K/mm3 (4.5-10.0) RBC 4.26 M/mm3 (4.2-5.4) Hgb 12.6 g/dL (12.0-15.0) Hct 38.1 % (37.0-47.0) MCV 89.4 fl (80-100) MCH 29.6 pg (26-34) MCHC 33.1 g/dl (32-36) RDW 12.1 % (11.5-14.5) Plt Count 226 k/mm3 (150-375) MPV 9.1 fl (7.4-10.4) Sodium 142 mmol/L (137-145) Potassium 3.8 mmol/L (3.4-5.0) Chloride 108 H mmol/L (98-107) Carbon Dioxide 26 mmol/L (22-30) Anion Gap 8 mmol/L (8-16) BUN 4 L D mg/dL (7-17) Creatinine 0.70 mg/dL (0.7-1.0) Estim Creat Clear Calc 80 ml/min Estimated GFR > 60 (59 - ) Glucose 98 mg/dL (65-110) Calcium 9.1 mg/dL (8.4-10.2) Total Bilirubin 0.7 mg/dL (0.2-1.3) AST 21 U/L (14-36) ALT 25 U/L (6-35) Alkaline Phosphatase 58 U/L (38-126) Total Protein 7.0 g/dL (6.3-8.2) Albumin 3.9 g/dL (3.5-5.1) Lipase 435 H U/L (23-300) Patient hx anesthesia problems: none Family hx anesthesia problems: none Results Review: All pre-operative results and documents have been reviewed as part of the pre-operative evaluation. [facility] Past Medical History Medical History Anxiety Asthma Elevated transaminase level Epigastric pain Gallstone pancreatitis Surgical History Surgical History History of tubal ligation Family History Family History Father Diabetes mellitus Hypertension Mother Diabetes mellitus Hypertension Social History Social History Smoking status: Never smoker Alcohol intake: current Drinks per week: 1 Alcohol use details: 3/MONTH Substance use: never Substance use type: does not use Do You Feel Safe in your Home?: Yes Lack of Transportation: No Lack of Food: Never True Current Housing: I Have Housing Concerned About Future Housing: No Difficulty Paying Gas/Electric Bills: No Difficulty Paying for Meds: No Currently Unemployed: No Education: Bachelor's Degree Difficulty w/ Childcare or Family Care: No Living arrangements: alone Spiritual care concerns: No Anes - Eval Final PreProcedure Day of Procedure 05/03/23 15:20 Patient weight: normal Heart: regular rate and rhythm Lungs: clear to auscultation Airway: Mallampati scale class II Neurological: alert and oriented Last oral intake: >/= 8 hours ASA classification: II Emergent: no Anesthetic plan: proceed Anesthesia type and monitoring: general ETT and standard monitoring Results Review: All pre-operative results and documents have been reviewed as part of the pre-operative evaluation. Informed Consent: The patient's anesthetic plan and its attendant ris
[2023-05-03] MEDS: LIDO 1%/EPINEPHRINE 1:100,000 50 ML VIAL 40 ML INFILTRATE (15:55)
[2023-05-03] MEDS: KETOROLAC 15 MG/ML VIAL (*BKC) IV PUSH (16:07)
--- NOTE | 2023-05-03 16:40 | W.PM.PROC2 ---
Procedure Note - Detailed Date of Procedure 05/03/23 Pre-op Diagnosis Choledocholithiasis, cholelithiasis, acute gallstone pancreatitis Post-op Diagnosis Same Procedure Performed Laparoscopic cholecystectomy Surgeon Ric Tubbs MD Clinical Pharmacist Dario Contreras [employer] Anesthesia General Indications Patient is a 37-year-old female who was admitted to the hospital with acute gallstone pancreatitis. Appeared to have passed her gallstone and her lipase decreased from 40,000 down to 6000 the day after admission. Two days after admission her lipase decreased to 500. MRCP showed no evidence of retained common bile duct stone. Multiple gallstones were seen in the gallbladder and due to her recent history of choledocholithiasis and acute gallstone pancreatitis was recommended that she undergo a laparoscopic cholecystectomy prior to discharge home Findings A distended gallbladder with multiple small gallstones within the gallbladder. There was some reactive edema around the gallbladder with the gallbladder itself did not appear to be acutely inflamed. Description of Procedure After informed consent was obtained patient brought to the operating room she was placed supine position and general endotracheal anesthesia was administered. The abdomen was then prepped draped usual sterile fashion. A time-out was then performed correctly identifying the patient as well as procedure to be performed. She was already getting scheduled IV antibiotics. I 1st entered the abdomen utilizing a 5mm Optiview port in the left upper quadrant. Once inside the abdomen insufflated to adequate pneumoperitoneum of 15mmHg of CO2. There were no adhesions around the area the umbilicus with placed a 5mm periumbilical trocar port without difficulty. Switching the camera to the periumbilical trocar port looking into the upper portions of the abdomen I could see a distended gallbladder with some reactive trace fluid around the gallbladder but no obvious acute inflammation of the gallbladder. I placed additional laparoscopic trocar ports in the epigastric region and the subcostal regions all under direct visualization. I then with a laparoscopic grasper held the gallbladder at the dome and elevated the gallbladder over the right half liver towards the right shoulder. A 2nd grasper used to hold the gallbladder at the infundibulum. I then proceeded to strip down the visceroperitoneum off of the infundibular gallbladder until I identified the cystic duct. The cystic duct was dissected out circumferentially. The cystic artery was identified and dissected out circumferentially as well. Posterior wall the gallbladder at the infundibulum dissected free of the liver into the critical view was obtained. I then placed 2 clips proximally cystic duct and 2 clips distally high on infundibular gallbladder appeared the cystic duct was then divided with Endo Stephanie. In a similar fashion cystic artery clipped and divided as well. The gallbladder was resected off the liver utilized electrocautery without spilling any bile or any gallstones. The gallbladder was then placed into an Endo-Catch bag and brought out through the epigastric 10mm trocar port site. The gallbladder and multiple small gallstones within were sent to pathology for examination. I then irrigated out the right upper quadrant the abdomen the gallbladder fossa with copious sterile saline solution. Hemostasis was the gallbladder fossa was excellent. No bleeding from the cystic artery which was clipped. No evidence of bile leak. I then aspirated the fluid from the right upper quadrant the abdomen from the pelvis. I then removed all the trocar ports under visualization all port sites appeared hemostatic. I then allowed the abdomen decompress. We then irrigated out the port sites sterile saline solution hemostasis was good. I then closed the epigastric 10mm trocar port fascial defect utilizing 0 Vicryl suture. The skin edges on the port sites were
[2023-05-03] MEDS: ONDANSETRON INJ 4 MG/2 ML VIAL IV PUSH (17:08)
[2023-05-03] MEDS: SCOPOLAMINE 1 MG PATCH 1 PATCH TRANSDERM (17:24)
[2023-05-03] MEDS: PROMETHAZINE HCL 25 MG/ML AMPUL 12.5 MG IV PUSH (17:30)
[2023-05-04] VITALS (7 sets, daily range): BP systolic 133–161; BP diastolic 75–88; PULSE 59–84; RESP 16–18; TEMP 37.1–38; O2SAT 99–100
[2023-05-04] MEDS: ACETAMINOPHEN 325 MG TABLET 650 MG PO ×3 (02:18→20:34)
[2023-05-04] MEDS: DEXTROSE 5%/LACTATED RINGERS 1,000 ML 125 ML IV CONT (04:53)
[2023-05-04 06:02] LABS: Hematocrit 37.2 % (37.0-47.0); Hemoglobin 11.8 g/dL (12.0-15.0); Mean Corpuscular HGB Conc 31.7 g/dl (32-36); Mean Corpuscular Hemoglobin 29.1 pg (26-34); Mean Corpuscular Volume 91.9 fl (80-100); Mean Platelet Volume 9.4 fl (7.4-10.4); Platelet Count Result 209 k/mm3 (150-375); Red Blood Count 4.05 M/mm3 (4.2-5.4); Red Cell Distribution Width 12.3 % (11.5-14.5); White Blood Count 4.8 K/mm3 (4.5-10.0)
[2023-05-04 06:17] LABS: Alanine Aminotransferase 40 U/L (6-35); Albumin Level 3.4 g/dL (3.5-5.1); Alkaline Phosphatase 53 U/L (38-126); Anion Gap 4 mmol/L (8-16); Aspartate Amino Transferase 40 U/L (14-36); Bilirubin,Total 0.3 mg/dL (0.2-1.3); Blood Urea Nitrogen 5 mg/dL (7-17); Calcium 8.9 mg/dL (8.4-10.2); Carbon Dioxide 27 mmol/L (22-30); Chloride 108 mmol/L (98-107); Estimated CRCL calculation 80 ml/min; Estimated Glomerular Filt Rate > 60; Glucose 137 mg/dL (65-110); Lipase 84 U/L (23-300); Potassium 4.3 mmol/L (3.4-5.0); Sodium 139 mmol/L (137-145)
--- NOTE | 2023-05-04 08:44 | WPDANESPN ---
Anes - Prog Note Post-Op Date/Time: 05/04/23 08:44 Cardiovascular status: normal Respiratory status: normal Airway patency: baseline Mental status: baseline Post-Op hydration status: normal Vital Signs: Last Vital Signs Temp 37.7 C H 05/04/23 04:51 Pulse 84 05/04/23 03:37 Resp 16 05/04/23 03:37 BP 133/75 05/04/23 03:37 Pulse Ox 99 05/04/23 03:37 O2 Del Method Room Air 05/03/23 20:00 O2 Flow Rate 10 05/03/23 16:30 Pain Score (VAS): 410 I/O: Intake & Output 05/03/23 05/04/23 05/04/23 23:59 07:59 15:59 Intake Total 1900 600 Output Total 0 Balance 1900 600 Laboratory Tests 05/04/23 05:44 05/04/23 05:44 05/04/23 05:44 WBC 4.8 RBC 4.05 L Hgb 11.8 L Hct 37.2 MCV 91.9 MCH 29.1 MCHC 31.7 L RDW 12.3 Plt Count 209 MPV 9.4 Sodium 139 Potassium 4.3 Chloride 108 H Carbon Dioxide 27 Anion Gap 4 L BUN 5 L Creatinine 0.70 Estim Creat Clear Calc 80 Estimated GFR > 60 Glucose 137 H Calcium 8.9 Total Bilirubin 0.3 AST 40 H ALT 40 H Alkaline Phosphatase 53 Total Protein 6.0 L Albumin 3.4 L Lipase 84 Post-procedural complaints: none Patient Feedback: Patient satisfied with anesthetic care.
[2023-05-04] MEDS: PANTOPRAZOLE 40 MG TABLET PO (08:46)
[2023-05-04] MEDS: NEOMYCIN/POLYMYXIN/BACITRACIN OINTMENT 15 GM TUBE 1 APPLIC TOPICAL (08:51)
--- NOTE | 2023-05-04 11:59 | PCDIET ---
Pt post op, Regular diet ordered, eating and tolerating well. No questions or concerns regarding nutrition education on low fat diet from yesterday.
--- NOTE | 2023-05-04 12:29 | WPDGIPROGNO ---
Progress Note: A&P Assessment and Plan (1) Gallstone pancreatitis: Code(s): K85.10 - Biliary acute pancreatitis without necrosis or infection Status: Acute Assessment and Plan: s/p lap иван recovering discharge per surgery team (2) Elevated transaminase level: Code(s): R74.01 - Elevation of levels of liver transaminase levels Status: Acute (3) Epigastric pain: Code(s): R10.13 - Epigastric pain Status: Acute (4) Acute pancreatitis: Qualifiers: Acute pancreatitis complication: unspecified Pancreatitis type: unspecified pancreatitis type Qualified Code(s): K85.90 - Acute pancreatitis without necrosis or infection, unspecified Code(s): K85.90 - Acute pancreatitis without necrosis or infection, unspecified Status: Acute Assessment and Plan: improved from gs pancreatitis Subjective Date/time seen: 05/04/23 12:29 Interval history: doing well, recovering from surgery, she is comfortable Review of Systems Review of Systems: All systems reviewed & are unremarkable except as noted in HPI and below Exam Const: General: comfortable and no acute distress HENMT: Face/Nose/Sinus: Normal nares present Eyes: General: appearance normal, both eyes and all related structures Neck: Neck: no JVD Resp: Auscultation: clear to auscultation bilaterally Cardio: Rate: regular rate Rhythm: regular rhythm GI: Inspection: non-distended GI Palp: Yes Soft to palpation Auscultation: normal bowel sounds Other: normal post op pain Skin: General skin exam: normal color Neuro: Speech: normal speech Motor exam (neuro): 5/5 motor strength present throughout Extrem: General: normal to inspection Psych: Mental Status: mental status grossly normal Objective Data Vital Signs Vital Signs: Vital Signs - 24 hr 05/03/23 14:00 05/03/23 15:10 05/03/23 16:28 Temperature 97.8 F 99.6 F 97 F L Pulse Rate 102 H 91 70 Respiratory Rate 20 20 20 Blood Pressure 136/81 152/84 H 109/49 L Pulse Oximetry 100 100 100 Oxygen Delivery Room Air Simple Face Mask Oxygen Flow Rate 10 05/03/23 16:30 05/03/23 16:45 05/03/23 17:00 Temperature Pulse Rate 70 68 96 Respiratory Rate 15 14 16 Blood Pressure 106/48 L 106/51 L 101/89 Pulse Oximetry 100 100 100 Oxygen Delivery Simple Face Mask Room Air Room Air Oxygen Flow Rate 10 05/03/23 17:15 05/03/23 17:27 05/03/23 17:50 Temperature 98.5 F Pulse Rate 99 92 109 H Respiratory Rate 14 14 18 Blood Pressure 132/76 139/75 141/75 H Pulse Oximetry 99 100 100 Oxygen Delivery Room Air Room Air Oxygen Flow Rate 05/03/23 18:35 05/03/23 20:00 05/03/23 20:00 Temperature 99.5 F 99.7 F H Pulse Rate 101 H 99 Respiratory Rate 18 17 Blood Pressure 131/71 126/74 Pulse Oximetry 98 99 Oxygen Delivery Room Air Oxygen Flow Rate 05/03/23 23:18 05/04/23 02:18 05/04/23 03:37 Temperature 99.7 F H 100.4 F H 99.8 F H Pulse Rate 77 84 Respiratory Rate 16 16 Blood Pressure 115/69 133/75 Pulse Oximetry 97 99 Oxygen Delivery Oxygen Flow Rate 05/04/23 04:51 05/04/23 08:00 Temperature 99.8 F H 99.1 F Pulse Rate 66 Respiratory Rate 18 Blood Pressure 135/82 Pulse Oximetry 100 Oxygen Delivery Oxygen Flow Rate Intake/Output Intake/Output: Intake & Output 05/01/23 05/02/23 05/03/23 05/04/23 23:59 23:59 23:59 23:59 Intake Total 1300 2650 2100 840 Output Total 0 Balance 1300 2650 2100 840 Meds/Results Medications: Active Medications Generic Name Dose Route Start Last Admin Trade Name Freq PRN Reason Stop Dose Admin Acetaminophen 650 mg 05/01/23 17:11 05/04/23 08:46 Acetaminophen 325 Mg Tablet PO 650 mg Q4H PRN Administration Mild Pain (1-3) or Fever Hydrocodone Bitart/Acetaminophen 1 tab 05/01/23 17:11 Hydrocodone/Acetaminophen (*Crx) 5-325 Mg Tablet PO Q4H PRN Moderate Pain (4-6) Diphenhydramine HCl 25 mg 05/01/23
--- NOTE | 2023-05-04 14:44 | PM.PNGS ---
Progress Note: A&P Assessment and Plan (1) Cholelithiasis: Code(s): K80.20 - Calculus of gallbladder without cholecystitis without obstruction Status: Acute Assessment and Plan: Postop day 1 and overall doing well. She had a low-grade fever overnight. Only additional complaints today is congestion and sore throat, which she could have sore throat from intubation during surgery. But she has been tested for COVID, influenza, and RSV. Will add incentive spirometry as it may be due to atelectasis. Could also be in response to surgery. We will continue to monitor her and hopefully we can discharge her tomorrow if she is afebrile. (2) Gallstone pancreatitis: Code(s): K85.10 - Biliary acute pancreatitis without necrosis or infection Status: Acute Assessment and Plan: Pancreatitis improved. Lipase normal. Advanced to a regular diet and tolerating this well. Plan I have discussed the patient's case and plan of care with Dr. Tubbs. Subjective Subjective Date/Time Seen: 05/04/23 14:44 Patient reports: tolerating a regular diet, flatus, no bowel movement and fever (tmax 100.4 F overnight) Interval history: Patient complains of right posterior shoulder pain that has improved with ambulating in the halls. She denies abdominal pain, nausea, or vomiting. Tolerating her regular diet. She is worried about having a low grade fever last night. She does report some sinus congestion and sore throat today. She was tested for COVID, influenza A/B, and RSV today due to those complainst, which are pending. Denies any chest pain, shortness of breath, urinary complaints or any other specific complaints. Review of Systems Review of Systems: All systems reviewed & are unremarkable except as noted in HPI and below Exam Const: General: comfortable and no acute distress Orientation/consciousness: patient oriented x3 GI: Inspection: non-distended and incision (dry and glue intact, no erythema or drainage) GI Palp: Yes Soft to palpation, No Tenderness to palpation present (GI) and No Guarding due to palpation present (GI) Auscultation: normal bowel sounds Objective Data Vital Signs Vital Signs: Vital Signs - 24 hr 05/03/23 15:10 05/03/23 16:28 05/03/23 16:30 Temperature 99.6 F 97 F L Pulse Rate 91 70 70 Respiratory Rate 20 20 15 Blood Pressure 152/84 H 109/49 L 106/48 L Pulse Oximetry 100 100 100 Oxygen Delivery Room Air Simple Face Mask Simple Face Mask Oxygen Flow Rate 10 10 05/03/23 16:45 05/03/23 17:00 05/03/23 17:15 Temperature Pulse Rate 68 96 99 Respiratory Rate 14 16 14 Blood Pressure 106/51 L 101/89 132/76 Pulse Oximetry 100 100 99 Oxygen Delivery Room Air Room Air Room Air Oxygen Flow Rate 05/03/23 17:27 05/03/23 17:50 05/03/23 18:35 Temperature 98.5 F 99.5 F Pulse Rate 92 109 H 101 H Respiratory Rate 14 18 18 Blood Pressure 139/75 141/75 H 131/71 Pulse Oximetry 100 100 98 Oxygen Delivery Room Air Oxygen Flow Rate 05/03/23 20:00 05/03/23 20:00 05/03/23 23:18 Temperature 99.7 F H 99.7 F H Pulse Rate 99 77 Respiratory Rate 17 16 Blood Pressure 126/74 115/69 Pulse Oximetry 99 97 Oxygen Delivery Room Air Oxygen Flow Rate 05/04/23 02:18 05/04/23 03:37 05/04/23 04:51 Temperature 100.4 F H 99.8 F H 99.8 F H Pulse Rate 84 Respiratory Rate 16 Blood Pressure 133/75 Pulse Oximetry 99 Oxygen Delivery Oxygen Flow Rate 05/04/23 08:00 05/04/23 08:00 Temperature 99.1 F Pulse Rate 66 Respiratory Rate 18 Blood Pressure 135/82 Pulse Oximetry 100 Oxygen Delivery Room Air Oxygen Flow Rate Intake/Output Intake/Output: Intake & Output 05/01/23 05/02/23 05/03/23 05/04/23 23:59 23:59 23:59 23:59 Intake Total 1300 2650 2100 1080 Output Total 0 Balance 1300 2650 2100 1080 Meds/Results Medications: Active Medications Generic Name Dose Route Start Last Admin Trade Name Freq PRN Reason Stop Dose Admin Acetaminophen
--- NOTE | 2023-05-04 14:54 | PM.IMPN ---
Progress Note: A&P Assessment and Plan (1) Choledocholithiasis: Code(s): K80.50 - Calculus of bile duct without cholangitis or cholecystitis without obstruction Status: Acute Assessment and Plan: CT abd/pelvis: Findings likely represent choledocholithiasis, although no obstructing stone or mass is detected. Consider MRCP. Secondary pancreatitis may be present, correlate with pancreatic labs. RUQ US: Cholelithiasis with borderline gallbladder wall thickening and small volume pericholecystic fluid. Pancreatic duct dilation. No obstructing biliary duct stone detected. 05/01 AST 64, ALT 38, alk-phos 70, lipase >40,000. 05/02 AST 28, ALT 32, alk-phos 63, lipase 6368. 05/03 lipase <500 05/04 lipase WNL Consult GI and General surgery POD 1 cholecystectomy. Pt has had elevated temperatures post-op with high of 100.4. P.r.n. pain medication. Trend daily labs. (2) Acute pancreatitis: Qualifiers: Acute pancreatitis complication: unspecified Pancreatitis type: unspecified pancreatitis type Qualified Code(s): K85.90 - Acute pancreatitis without necrosis or infection, unspecified Code(s): K85.90 - Acute pancreatitis without necrosis or infection, unspecified Status: Acute Assessment and Plan: Resolved. P.r.n. pain medication. (3) COVID: Code(s): U07.1 - COVID-19 Status: Acute Assessment and Plan: On postop day 1 patient had low-grade fevers and some upper respiratory symptoms such as sinus congestion. Along with possible reactive low-grade fever some surgery and postop atelectasis patient was tested for flu, COVID and RSV. Patient tested positive for COVID-19. Patient is not requiring oxygen support at this time thus does not need remdesivir or dexamethasone. Contact precautions initiated. Continue to monitor. Subjective Date/time seen: 05/04/23 14:54 Interval history: Patient having low carried fever overnight with a high of 100.4. along with a low-grade fever she complains of congestion and sore throat. Patient developed these symptoms while in the hospital. Sore throat could likely be from intubation. Due to her symptoms did run a COVID and flu test. Discussed this with General surgery and will keep patient overnight and hopefully discharge tomorrow if she is 24 hours fever free. 1623: COVID postive. Exam Narrative: GENERAL: Comfortable, no acute distress HENMT: moist mucous membranes EYES: EOM intact b/l NECK: no lymphadenopathy RESPIRATORY: clear to auscultation CARDIO: RRR GI: soft, nontender, bowel sounds present SKIN: no rashes EXTREMITIES: no edema, redness or tenderness Objective Data Vital Signs Vital Signs: Vital Signs - 24 hr 05/03/23 15:10 05/03/23 16:28 05/03/23 16:30 Temperature 99.6 F 97 F L Pulse Rate 91 70 70 Respiratory Rate 20 20 15 Blood Pressure 152/84 H 109/49 L 106/48 L Pulse Oximetry 100 100 100 Oxygen Delivery Room Air Simple Face Mask Simple Face Mask Oxygen Flow Rate 10 10 05/03/23 16:45 05/03/23 17:00 05/03/23 17:15 Temperature Pulse Rate 68 96 99 Respiratory Rate 14 16 14 Blood Pressure 106/51 L 101/89 132/76 Pulse Oximetry 100 100 99 Oxygen Delivery Room Air Room Air Room Air Oxygen Flow Rate 05/03/23 17:27 05/03/23 17:50 05/03/23 18:35 Temperature 98.5 F 99.5 F Pulse Rate 92 109 H 101 H Respiratory Rate 14 18 18 Blood Pressure 139/75 141/75 H 131/71 Pulse Oximetry 100 100 98 Oxygen Delivery Room Air Oxygen Flow Rate 05/03/23 20:00 05/03/23 20:00 05/03/23 23:18 Temperature 99.7 F H 99.7 F H Pulse Rate 99 77 Respiratory Rate 17 16 Blood Pressure 126/74 115/69 Pulse Oximetry 99 97 Oxygen Delivery Room Air Oxygen Flow Rate 05/04/23 02:18 05/04/23 03:37 05/04/23 04:51 Temperature 100.4 F H 99.8 F H 99.8 F H Pulse Rate 84 Respiratory Rate 16 Blood Pressure 133/75 Pulse Oximetry 99 Oxygen Delivery O
[2023-05-04 15:44] LABS: Influenza A QL RT-PCR Negative (Negative); Influenza B QL RT-PCR Negative (Negative); RSV RNA, RT-PCR Negative (Negative); SARS-CoV-2 RNA PCR Positive (Negative)
[2023-05-04] MEDS: SIMETHICONE 80 MG TAB.CHEW PO (16:05)
[2023-05-05 05:35] VITALS: BP 141/71; PULSE 65; RESP 16; TEMP 37.7; O2SAT 98
[2023-05-05 06:10] LABS: Hematocrit 37.8 % (37.0-47.0); Mean Corpuscular HGB Conc 31.7 g/dl (32-36); Mean Corpuscular Hemoglobin 29.8 pg (26-34); Mean Corpuscular Volume 93.8 fl (80-100); Mean Platelet Volume 9.5 fl (7.4-10.4); Platelet Count Result 199 k/mm3 (150-375); Red Blood Count 4.03 M/mm3 (4.2-5.4); Red Cell Distribution Width 12.6 % (11.5-14.5); White Blood Count 4.8 K/mm3 (4.5-10.0)
[2023-05-05 06:19] LABS: Alanine Aminotransferase 57 U/L (6-35); Albumin Level 3.6 g/dL (3.5-5.1); Alkaline Phosphatase 52 U/L (38-126); Anion Gap 5 mmol/L (8-16); Aspartate Amino Transferase 64 U/L (14-36); Bilirubin,Total 0.3 mg/dL (0.2-1.3); Blood Urea Nitrogen 8 mg/dL (7-17); Calcium 8.7 mg/dL (8.4-10.2); Carbon Dioxide 31 mmol/L (22-30); Chloride 105 mmol/L (98-107); Estimated CRCL calculation 80 ml/min; Estimated Glomerular Filt Rate > 60; Glucose 101 mg/dL (65-110); Potassium 4.1 mmol/L (3.4-5.0); Sodium 141 mmol/L (137-145)
[2023-05-05] MEDS: PANTOPRAZOLE 40 MG TABLET PO (09:07)
[2023-05-05] MEDS: polyethylene glycoL 3350 17 GM POWD.PACK PO (09:07)
[2023-05-05] MEDS: ACETAMINOPHEN 325 MG TABLET 650 MG PO (09:07)
[2023-05-05] MEDS: NEOMYCIN/POLYMYXIN/BACITRACIN OINTMENT 15 GM TUBE 1 APPLIC TOPICAL (09:07)
[2023-05-05] MEDS: SIMETHICONE 80 MG TAB.CHEW PO (09:07)
--- NOTE | 2023-05-05 10:13 | PM.PNGS ---
Progress Note: A&P Assessment and Plan (1) COVID: Code(s): U07.1 - COVID-19 Status: Acute Assessment and Plan: Likely the source of her low-grade fevers, and only have minor symptoms. Continue medical management per Hospitalist. (2) Cholelithiasis: Code(s): K80.20 - Calculus of gallbladder without cholecystitis without obstruction Status: Acute Assessment and Plan: Continues to do well surgically on postop day 2 following a laparoscopic cholecystectomy. Incisions look good today. She is tolerating a solid diet and tolerating activity. She is stable from a surgical standpoint to discharge home when okay with the Hospitalist. Follow-up in [address] Tubbs. (3) Gallstone pancreatitis: Code(s): K85.10 - Biliary acute pancreatitis without necrosis or infection Status: Acute Assessment and Plan: Pancreatitis improved. Lipase normalized yesterday. Tolerating a regular diet. Not having any abdominal pain or tenderness. Plan I have discussed the patient's case and plan of care with Dr. Tubbs. Subjective Subjective Date/Time Seen: 05/05/23 10:13 Post Op day: 2 Patient reports: no new complaints, feels better, tolerating a regular diet, voiding w/o difficulty, flatus, no bowel movement and fever (tmax 99.9F) Interval history: Patient doing well today. Main complaint is sinus congestion and cough today. Still with a low-grade fever. Tested positive for COVID. No abdominal pain, nausea, vomiting, shortness of breath, chest pain, or any other complaints at this time. Review of Systems Review of Systems: All systems reviewed & are unremarkable except as noted in HPI and below Exam Const: General: comfortable and no acute distress Orientation/consciousness: patient oriented x3 GI: Inspection: non-distended and incision (dry and healing well with glue intact) GI Palp: Yes Soft to palpation, No Tenderness to palpation present (GI), No Guarding due to palpation present (GI) and No Rebound tenderness present Auscultation: normal bowel sounds Objective Data Vital Signs Vital Signs: Vital Signs - 24 hr 05/04/23 16:00 05/04/23 20:00 05/04/23 20:08 Temperature 98.9 F 98.8 F Pulse Rate 59 L 59 L 65 Respiratory Rate 18 18 16 Blood Pressure 161/88 H 148/75 H Pulse Oximetry 100 100 100 Oxygen Delivery Room Air 05/05/23 05:35 Temperature 99.9 F H Pulse Rate 65 Respiratory Rate 16 Blood Pressure 141/71 H Pulse Oximetry 98 Oxygen Delivery Intake/Output Intake/Output: Intake & Output 05/02/23 05/03/23 05/04/23 05/05/23 23:59 23:59 23:59 23:59 Intake Total 2650 2100 1870 360 Output Total 0 Balance 2650 2100 1870 360 Meds/Results Medications: Active Medications Generic Name Dose Route Start Last Admin Trade Name Freq PRN Reason Stop Dose Admin Acetaminophen 650 mg 05/01/23 17:11 05/05/23 09:07 Acetaminophen 325 Mg Tablet PO 650 mg Q4H PRN Administration Mild Pain (1-3) or Fever Hydrocodone Bitart/Acetaminophen 1 tab 05/01/23 17:11 Hydrocodone/Acetaminophen (*Crx) 5-325 Mg Tablet PO Q4H PRN Moderate Pain (4-6) Diphenhydramine HCl 25 mg 05/01/23 17:31 Diphenhydramine Hcl Inj 50 Mg/Ml Vial IV PUSH Q4H PRN Itching Dextrose/Lactated Ringer's 1,000 mls @ 60 mls/hr 05/03/23 11:05 05/04/23 12:31 Dextrose 5%/Lactated Ringers IV CONT 0 mls/hr .[id number] LARA Infusion Morphine Sulfate 2 mg 05/01/23 17:11 Morphine Sulfate (*Crx) 2 Mg/Ml Inj IV PUSH Q4H PRN Pain Rated 7-10 Neomycin/Polymyxin/Bacitracin 1 applic 05/03/23 09:12 05/05/23 09:07 Neomycin/Polymyxin/Bacitracin Ointment 15 Gm Tube TOPICAL 1 applic QAM LARA Administration Ondansetron HCl 4 mg 05/01/23 17:11 05/03/23 17:08 Ondansetron Inj 4 Mg/2 Ml Vial IV PUSH 4 mg Q6H PRN Administration Nausea And Vomiting Pantoprazole Sodium 40 mg 05/04/23 09:00 05/05/23 09:07 Pantoprazole 40 Mg Tablet
--- NOTE | 2023-05-05 12:24 | PM.DS ---
DS: Admitting Diagnosis Discharge Date 05/05/2023 Admitting Diagnosis Abdominal Pain DS: Discharge Diagnosis Discharge Diagnosis (1) Choledocholithiasis: Code(s): K80.50 - Calculus of bile duct without cholangitis or cholecystitis without obstruction Status: Acute Assessment and Plan: CT abd/pelvis: Findings likely represent choledocholithiasis, although no obstructing stone or mass is detected. Consider MRCP. Secondary pancreatitis may be present, correlate with pancreatic labs. RUQ US: Cholelithiasis with borderline gallbladder wall thickening and small volume pericholecystic fluid. Pancreatic duct dilation. No obstructing biliary duct stone detected. 05/01 AST 64, ALT 38, alk-phos 70, lipase >40,000. 05/02 AST 28, ALT 32, alk-phos 63, lipase 6368. 05/03 lipase <500 05/04 lipase WNL Consult GI and General surgery POD 1 cholecystectomy. Pt has had elevated temperatures post-op with high of 100.4. P.r.n. pain medication. pt is doing better ok to DC as per surgery team (2) Acute pancreatitis: Qualifiers: Acute pancreatitis complication: unspecified Pancreatitis type: unspecified pancreatitis type Qualified Code(s): K85.90 - Acute pancreatitis without necrosis or infection, unspecified Code(s): K85.90 - Acute pancreatitis without necrosis or infection, unspecified Status: Acute Assessment and Plan: Resolved. P.r.n. pain medication. (3) COVID: Code(s): U07.1 - COVID-19 Status: Acute Assessment and Plan: On postop day 1 patient had low-grade fevers and some upper respiratory symptoms such as sinus congestion. Along with possible reactive low-grade fever some surgery and postop atelectasis patient was tested for flu, COVID and RSV. Patient tested positive for COVID-19. Patient is not requiring oxygen support at this time thus does not need remdesivir or dexamethasone. stable for DC home DS: Summary Hospital Course Hospital Course: 47 y/o F presents here with left-sided abdominal pain and mild nausea with PMH of anxiety, asthma, and tubal ligation. Patient reports sudden onset of epigastric pain with radiation to her left upper quadrant that began today, 05/01, around 9:00 a.m. Describes the pain as constant and raw that was not relieved with movements/positions.? It is radiated to her left rib cage.? Associated nausea, mild and without vomiting and belching.? Patient had coffee and a bagel this morning. Patient attempted to treat discomfort and nausea with Klonopin, Pepto-Bismol, Tums, Rolaids, and Pepcid without relief.? Reports alcohol intake last night, 2 beverages - malibu and diet coke.? States she drinks very infrequently, approximately 3 times per year.? LBM this morning, normal color and consistency.? No previous history of gallstones or DM. Had moderate dyslipidemia in her 20's but resolved with weight loss.? No recent surgeries or illnesses.? Has had a similar episode on 03/27.? It is pain resolved with multiple doses of antacids and rest over 2 days. No history of abdominal bloating, food intolerance, increased gas, nausea or vomiting. No mid back or shoulder discomfort. Recently started a women's multivitamin once per day in the past week. ED workup revealed no leukocytosis, no anemia, glucose 143, calcium 10.6, AST 64, ALT 438, alk-phos 70, total bilirubin 1.1, and lipase >40,000. CT of abd/pelvis showed choledocholithiasis without obstructing stone and possible secondary pancreatitis. RUQ US showed cholelithiasis with borderline gallbladder wall thickening and small volume pericholecystic fluid, pancreatic duct dilation, no obstructing biliary duct stone detected. sp cholecystectomy. found to have covid but minor case only pt ok to DC Time Spent with Patient Time attestation: Total time spent providing and/or coordinating discharge services:40 minutes on day of DC Exam Narrative: GENERAL: Comfortable, no acute distre
== END 2023-05-05 13:20 | disposition home or self-care (01) | DRG 417 ==
LOC: ANHED 16:50 → ANH3MEDSUR 17:14
PROVIDERS: Internal Medicine Critical Care Medicine; Student in an Organized Health Care Education/Training Program; Surgery; Admitting Provider Internal Medicine; Emergency Provider Emergency Medicine; PCP Internal Medicine; Visit Provider Family Medicine
PROC: 0FT44ZZ Resection of Gallbladder, Percutaneous Endoscopic Approach (ICD-10-PCS; CPT 47562; principal; 2023-05-03 14:00)
DX: K85.10 Biliary acute pancreatitis without necrosis or infection (principal); U07.1 COVID-19; K80.50 Calculus of bile duct without cholangitis or cholecystitis without obstruction; F41.9 Anxiety disorder, unspecified; J45.909 Unspecified asthma, uncomplicated; R74.01 Elevation of levels of liver transaminase levels; Z28.21 Immunization not carried out because of patient refusal
CPT/HCPCS: 36415; 74177; 74183; 76376; 76705; 80053; 80061; 81001; 83036; 83690; 85025; 85027; 87637; 88304; 96365; 96375; 99285; A9270; A9577; C1713; C9113; J1100; J1170; J1200; J1650; J1836; J1885; J1956; J2250; J2371; J2405; J2543; J2550; J2704; J3010; J7120; J7121; Q9967